=== PATIENT | female | born 1960 | race Two or more races ===

== ENCOUNTER → 2016-06-11 | Outpatient (RCR) | payer MEDICARE, MEDICAID ==
[~2016-06-11] MED LIST: CARAFATE1 G1 ORAL; CRESTOR20 MG ORAL; FAMOTIDINE20 MG ORAL; HYDROCODON-ACE1 EA15 ORAL; IBUPROFEN200 M2 ORAL; LORAZEPAM1 MG ORAL; NEXIUM40 MG ORAL; NORCO 5-325 TA1 EACH PO; OMEPRAZOLE40 M1 ORAL; REGLAN10 MG ORAL; TRIAMTERENE-HC1 EAC6 ORAL
== END | disposition home or self-care (01) ==
LOC: PTY 09:00
DX: M54.2 Cervicalgia (principal); M25.562 Pain in left knee; M25.561 Pain in right knee
CPT/HCPCS: 97110; 97162; G0283; G8978; G8979

== ENCOUNTER 2016-11-18 03:31 | Emergency (ER) | payer MEDICARE, MEDICAID ==
[~2016-11-18] VITALS: Ht 160 cm; Wt 72.6 kg
[2016-11-18 03:45] VITALS: BP 153/98
[2016-11-18] MEDS ORDERED: Meclizine 25mg tab ORAL PRN (04:30)
[2016-11-18] MEDS ORDERED: MECLIZINE HCL25 MG ORAL (04:34)
[2016-11-18] MEDS ORDERED: Meclizine 25mg tab ORAL STA (04:43)
[2016-11-18 04:45] VITALS: BP 130/78
--- NOTE | 2016-11-18 05:41 | Emergency Room Report ---
History of Present Illness General Chief Complaint: Dizziness Source: Patient Present Illness HPI [id number] walk-in with 2 days of "dizziness." Endorses episodes are intermittent, occur when bending over, sitting upright in bed, moving head to the side No assoc headache, neck stiffness/pain, fever/chills, extremity weakness, facial droop, slurred speech Patient drove herself to ED Ambulated in ED with steady gait While waiting to see MD took one of her ativan's Rx-ed for "anxiety" and dizziness episode resolved Allergies: Coded Allergies: No Known Allergies (Unverified , 09/10/14) dye and artificial flavoring Patient History Past Medical History: psych hx Past Surgical History: none Pertinent Family History: none Now: No Immunizations: UTD Reviewed Nursing Documentation: PMH: Agreed, PSxH: Agreed Nursing Documentation-PMH Past Medical History: No History, Except For Hx Hypertension: Yes - acid reflux Hx Gastrointestinal Problems: Yes - GERD History Of Psychiatric Problem: Yes - Anxiety Review of Systems All Other Systems: negative except mentioned in HPI Physical Exam Vital Signs Date Time Temp Pulse Resp B/P Pulse Ox O2 Delivery O2 Flow Rate FiO2 11/18/16 03:38 97.9 73 14 153/98 98 Room Air Sp02 EP Interpretation: reviewed, normal General Appearance: normal inspection, well appearing, no apparent distress, alert, GCS 15, non-toxic Head: normocephalic, atraumatic Eyes: bilateral eye EOMI, bilateral eye PERRL, bilateral eye other - no nystagmus ENT: normal ENT inspection, hearing grossly normal, normal voice, other - + kayla hallpike Neck: normal inspection, full range of motion, supple, no meningismus, no bony tend Respiratory: normal inspection, lungs clear, normal breath sounds, no respiratory distress, no retraction, no wheezing Cardiovascular #1: regular rate, rhythm, no edema Gastrointestinal: normal inspection, normal bowel sounds, non tender, soft, no guarding, no hernia Genitourinary: no CVA tenderness Musculoskeletal: normal inspection, back normal, normal range of motion, Dominique' s Sign negative Neurologic: normal inspection, alert, oriented x3, responsive, 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, motor strength/tone normal, speech normal Psychiatric: normal inspection, judgement/insight normal, mood/affect normal Skin: normal inspection, normal color, no rash Lymphatic: normal inspection Medical Decision Making Diagnostic Impression: Primary Impression: Vertigo ER Course "Dizziness" for 2 days Initially hypertensive, resolved with self-given ativan while in ED + kayla hallpike No focal neuro deficits to suggest CVA Likely BPPV Rx Meclizine Asked her to call PMD for ENT referral this morning Last Vital Signs Date Time Temp Pulse Resp B/P Pulse Ox O2 Delivery O2 Flow Rate FiO2 11/18/16 04:45 98.0 82 16 130/78 100 Room Air Status: improved Disposition: HOME, SELF-CARE Condition: Improved Scripts Meclizine Hcl* (MECLIZINE*) 25 Mg Tablet 25 MG ORAL BID for 7 Days, #30 TAB Prov: SALO ODONNELL M.D. 11/18/16 Patient Instructions: Benign Positional Vertigo Additional Instructions: - Call primary doctor for ENT referral TODAY for Benign Positional Vertigo - Take Meclizine up to twice daily for vertigo SALO ODONNELL M.D. Nov 18, 2016 05:41
== END 2016-11-18 04:45 | disposition home or self-care (01) ==
LOC: EMR 03:56
DX: R42 Dizziness and giddiness (principal); I10 Essential (primary) hypertension; K21.9 Gastro-esophageal reflux disease without esophagitis; F41.9 Anxiety disorder, unspecified
CPT/HCPCS: 99283

== ENCOUNTER 2017-06-16 21:20 | Emergency (ER) | payer MEDICARE, MEDICAID ==
[~2017-06-16] VITALS: Ht 160 cm; Wt 72.6 kg
[~2017-06-16 21:20] MED LIST changes: +MECLIZINE HCL25 MG ORAL
[2017-06-16 21:40] VITALS: BP 136/88
--- NOTE | 2017-06-16 21:44 | Emergency Room Report ---
History of Present Illness General Chief Complaint: Vaginal Source: Patient Present Illness HPI Patient present with complaints of vaginal itching Ongoing for the past 2-3 days Patient was just recently started on amoxicillin for dental infection She had a root canal and is having another procedure done She reports that this happened to her last time she took antibiotics Denies any dysuria or frequency denies any abdominal pain Denies any fevers or chills Denies any back or flank pain Allergies: Coded Allergies: No Known Allergies (Unverified , 09/10/14) dye and artificial flavoring Patient History Past Medical History: see triage record Pertinent Family History: none Reviewed Nursing Documentation: PMH: Agreed, PSxH: Agreed Nursing Documentation-PMH Hx Hypertension: Yes - acid reflux Hx Gastrointestinal Problems: Yes - GERD Review of Systems All Other Systems: negative except mentioned in HPI Physical Exam Vital Signs Date Time Temp Pulse Resp B/P (MAP) Pulse Ox O2 Delivery O2 Flow Rate FiO2 06/16/17 21:22 97.8 77 16 136/88 99 Room Air 97.9 Sp02 EP Interpretation: reviewed, normal General Appearance: well appearing, no apparent distress Head: normocephalic, atraumatic Eyes: bilateral eye PERRL, bilateral eye EOMI ENT: hearing grossly normal, normal pharynx, TMs + canals normal, uvula midline Neck: full range of motion, supple, no meningismus, no bony tend Respiratory: lungs clear, normal breath sounds, no rhonchi, no respiratory distress, no retraction, no accessory muscle use Cardiovascular #1: normal peripheral pulses, regular rate, rhythm, no edema, no gallop, no JVD, no murmur Gastrointestinal: normal bowel sounds, non tender, soft, no mass, no organomegaly, non-distended, no guarding, no hernia, no pulsatile mass, no rebound Genitourinary: no CVA tenderness Musculoskeletal: normal inspection Neurologic: oriented x3, responsive, 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, motor strength/ tone normal, sensory intact Psychiatric: mood/affect normal Skin: normal color, no rash, warm/dry, palpation normal Lymphatic: normal inspection, no adenopathy Medical Decision Making Diagnostic Impression: Primary Impression: Vaginosis ER Course Multiple differentials are considered Including but not limited to PID, vaginosis, UTI Patient symptoms are mainly in line with vaginosis Given the clinical history and exam Patient will be placed on appropriate medication And requires close outpatient follow Last Vital Signs Date Time Temp Pulse Resp B/P (MAP) Pulse Ox O2 Delivery O2 Flow Rate FiO2 06/16/17 21:22 97.8 77 16 136/88 99 Room Air 97.9 Status: unchanged Disposition: HOME, SELF-CARE Condition: Stable Additional Instructions: Patient is provided with the discharge instructions notified to follow up with primary doctor in the next 2-3 days otherwise return to the er with any worsening symptoms. Please note that this report is being documented using [employer] technology. This can lead to erroneous entry secondary to incorrect interpretation by the dictating instrument. GIOVANI REID D.O. Jun 16, 2017 21:44
[2017-06-16] MEDS ORDERED: FLUCONAZOLE100 MG ORAL (21:45)
[2017-06-16] MEDS ORDERED: METROGEL-VAGINA70 G1 VAGIN (21:45)
[2017-06-16 21:51] VITALS: BP 134/86
== END 2017-06-16 21:51 | disposition home or self-care (01) ==
LOC: EMR 21:50
DX: N76.0 Acute vaginitis (principal); K21.9 Gastro-esophageal reflux disease without esophagitis; I10 Essential (primary) hypertension
CPT/HCPCS: 99283